=== PATIENT | male | born 1970 | race Caucasian/White ===

== ENCOUNTER 2019-02-11 05:28 | Observation (INO) | payer OTHER ==
[2019-01-31 17:32] VITALS: BMI 47.1
--- NOTE | 2019-02-03 11:59 | PREOPHP ---
DATE OF ADMISSION: 02/11/2019 The patient is to have surgery with Dr. Ray Lees on 02/11/2019. REASON FOR CONSULTATION: Consultation requested by Dr. Ray Lees for medical evaluation and clearance of a 48-year-old gentleman about to undergo surgery. Thank you, Dr. Lees, for allowing us to participate in care of this patient. HISTORY OF PRESENT ILLNESS: Mohit Monterroso is a 48-year-old gentleman, issues with his back, is curre ntly being admitted for a lumbar decompression diskectomy L5-S1. The patient's past medical and surgical history shows he has had no prior hospitalizations of any no sort, no surgeries, has not broken any bones and has been generally healthy. Currently, takes the fo llowing medications: 1. Amlodipine 10 mg a day. 2. Benazepril 40 mg a day. 3. He also takes nonsteroidal for this discomfort. ALLERGIES: HE IS NOT ALLERGIC TO ANY MEDICATIONS. SOCIAL HISTORY: The patient is single, has no children, does not smoke. Alcohol socially. Does not drink coffee, is employed and usually has no difficulty sleeping at night. FAMILY HISTORY: Both parents are living. Father 76, mother 73. Father is healthy. Mother has had breast cancer. She is a survivor and also has issues with her blood pressure. Five siblings are in good health. He knows of no diabetes or heart. There is cancer and hypertension but no strokes to h is knowledge in his family. REVIEW OF SYSTEMS: HEENT: Unremarkable. CARDIORESPIRATORY: Denies any chest pain or shortness of breath. GASTROINTESTINAL: No melena or hematemesis. GENITOURINARY: No urgency or frequency. MUSCULOSKELETAL: Positive for back pain. NEUROPSYCHIATRIC: Unremarkable. PHYSICAL EXAMINATION: VITAL SIGNS: The patient's blood pressure was 132/60, pulse was 88 and regular, respirations were 18 , temperature 98.4. Height 5 feet 10-1/2 inches, weight 328.3 pounds. GENERAL: The patient was noted to be a well-developed, well-nourished male, alert and cooperative, i n no apparent acute distress, oriented to time, place, and person. HEAD, EARS, EYES, NOSE AND THROAT: Head was atraumatic. Eyes: Pupils were equal, reacted to light and accommodation. Fundi were benign. Tympanic membranes were unremarkable. Nose was negative. Mo uth was unremarkable. Fair oral hygiene was present. NECK: Supple without any rigidity. Trachea was midline. Thyroid was unremarkable. Neck veins were flat. Carotid pulses were equal. No bruits were heard. BACK: Unremarkable. CHEST: Symmetrical. BREASTS AND AXILLARY: Did not reveal any masses. LUNGS: Clear. HEART: Examination of the heart, PMI is fifth intercostal space at the midclavicular line. A regula r sinus rhythm was noted. No significant murmurs, rubs, or gallops being elicited. ABDOMEN: Soft, good bowel sounds were noted. No significant organomegaly, masses, or tenderness. GENITALIA: Per PCP. RECTAL AND PROSTATIC: Per PCP. EXTREMITIES: Did not reveal any clubbing, edema or cyanosis. Peripheral pulses were physiologic. SKIN: Moist and warm without any eruptions. No gross lymphadenopathy was noted. NEUROLOGIC: Grossly intact. IMPRESSION 1. Lumbar disk disease, L5-S1. 2. Sleep apnea. 3. Hypertension. 4. Metabolic syndrome. 5. Stable health. DISCUSSION: Review of laboratory and other data revealed the following: Patient's chemistry panel r evealed normal electrolytes, glucose was 75. Patient had eaten. BUN, creatinine, calcium, uric acid , proteins were normal. Liver function tests revealed elevated SGPT and SGOT. The patient's CBC, se d rate, UA, PT and PTT were within normal limits. Patient's EKG was normal. Patient's chest x-ray d id not reveal any acute infiltrates, nor were there any acute cardiopulmonary changes being noted. DISCUSSION: Dr. Lees, I see no contraindications in the patient undergoing current proposed osvaldo edith under desired form of anesthesia. The patient has been advised to bring his CPAP machine with h im so he can use it during his stay at [facility] and one of our group will be more than hap py to follow him with you during his stay at [facility]. Thank you again, Dr. Lees, for allowing us to participate in the care of this patient. Dictated By: DARON SANCHEZ MD SS/NTS Conf#: [id number] DID#: [id number] CC: RAY LEES MD;*EndCC*
[2019-02-11] VITALS (22 sets, daily range): BP systolic 80–134; BP diastolic 45–82; PULSE 82–119; RESP 12–23; Ht 180.3 cm; Wt 145.8 kg
[~2019-02-11] VITALS: Ht 180.3 cm; Wt 145.8 kg
[~2019-02-11 05:28] MED LIST: AMLO-147 PO; BENA40TA56 PO
[2019-02-11] MEDS ORDERED: GELATIN SIZE 100 SPONGE ONE ×2 (06:39→10:21)
[2019-02-11] MEDS ORDERED: THROMBIN 5000 UNIT VIAL ONE (06:39)
[2019-02-11] MEDS ORDERED: POLYMYXIN/BACITRACIN 1L IRRIG ONE (06:40)
[2019-02-11] MEDS ORDERED: BUPIVACAINE 0.25%/EPI (SDV) 30 ML INJ ONE (06:40)
[2019-02-11] MEDS ORDERED: PROPOFOL 20 ML ONE (07:14)
[2019-02-11] MEDS ORDERED: SUCCINYLCHOLINE CHLORIDE 100 MG/5 ML SYG IV ONE (07:14)
[2019-02-11] MEDS ORDERED: PROPOFOL 100 ML ONE ×2 (07:14→10:34)
[2019-02-11] MEDS ORDERED: LIDOCAINE 100 MG SYRINGE ONE (07:14)
--- NOTE | 2019-02-11 07:14 | HPN ---
Date/Time of Note Date/Time of Note DATE: 02/11/19 TIME: 07:13 Interval H&P Admission Note Pt. seen H&P reviewed: No system changes RAY LEES MD February 11, 2019 07:14
--- NOTE | 2019-02-11 07:14 | PREAC ---
Date/Time of Note Date/Time of Note DATE: 02/11/19 TIME: 07:12 Anesthesia Eval and Record Evaluation Time Pre-Procedure Interview DATE: 02/11/19 TIME: 07:12 Age 48 Sex male NPO: 8 hrs Preoperative diagnosis Chronic Low Back Pain Planned procedure L5/S1 laminectomy Past Medical History Past Medical History: Includes Cardio: HTN Endo: Other (Morbid Obestity) Pulm: Sleep Apnea, Home CPAP Surgery & Anesthesia Issues No known issue Meds Anticoagulation: No Beta Jose within 24 hr: No Reason Beta Jose not given: Pt. not on B-Jose Reported Medications Amlodipine Besylate* (Amlodipine Besylate*) 10 Mg Tablet, 10 MG PO DAILY 01/31/19 Benazepril Hcl* (Benazepril Hcl*) 40 Mg Tablet, 40 MG PO DAILY 01/31/19 Meds reviewed: Yes Allergies Coded Allergies: No Known Allergy (Unverified , 02/11/19) Allergies Reviewed: Yes Labs/Studies Labs Reviewed: Reviewed by anesthesiologist test: N/A Pre-procedure Exam Last vitals Vital Signs Date Temp Pulse Resp B/P (MAP) Pulse Ox O2 O2 Flow FiO2 Time Delivery Rate 02/11/19 98.9 96 18 128/82 98 06:23 (97) Airway: Adequate mouth opening, Adequate thyromental dist Mallampati: Mallampati III Teeth: Normal Lung: Normal Heart: Normal ASA Physical Status ASA physical status: 3 Emergency: None Planned Anesthetic General/MAC: ETT Pre-operative Attestations Prior to commencing anesthesia and surgery, the patient was re-evaluated, there was verification of: *The patient's identity *The results of appropriate recent lab work and preoperative vital signs *The above evaluation not changing prior to induction *Anesthetic plan, risk benefits, alternative and complications discussed with patient/family; questions answered; patient/family understands, accepts and wishes to proceed. ELSIE HEATON MD February 11, 2019 07:14
[2019-02-11] MEDS ORDERED: MIDAZOLAM 1 MG/ML 2 ML INJ ONE (07:15)
[2019-02-11] MEDS ORDERED: VASOPRESSIN 20 UNITS INJ ONE (07:39)
[2019-02-11] MEDS ORDERED: CEFAZOLIN 1 GM INJ ONE (08:07)
[2019-02-11] MEDS ORDERED: ONDANSETRON 4 MG INJ ONE (08:07)
[2019-02-11] MEDS ORDERED: DEXAMETHASONE 4 MG/ML 5 ML INJ ONE (08:07)
[2019-02-11] MEDS ORDERED: HEMOSTATIC MATRIX/ THROMBIN 1 EA SYG ZFS ONE (08:30)
[2019-02-11] MEDS ORDERED: PHENYLephrine (100 MCG/ML) 10ML SYG ONE (08:45)
[2019-02-11] MEDS ORDERED: EPHEDrine 25 MG/5 ML SYG ONE (08:45)
[2019-02-11] MEDS ORDERED: PHENYLephrine 10 MG INJ ONE (08:46)
[2019-02-11] MEDS ORDERED: LABETALOL HCL 20MG INJ IV PRN (09:00)
[2019-02-11] MEDS ORDERED: HYDROmorphONE 1 MG/5 ML IV SYRINGE IV PRN ×3 (09:00)
[2019-02-11] MEDS ORDERED: hydrALAzine 20 MG INJ IV PRN (09:00)
[2019-02-11] MEDS ORDERED: DIPHENHYDRAMINE 50 MG INJ IV PRN (09:00)
[2019-02-11] MEDS ORDERED: ONDANSETRON 4 MG INJ IV PRN ×2 (09:00→11:30)
[2019-02-11] MEDS ORDERED: MEPERIDINE 25 MG INJ IV PRN (09:00)
[2019-02-11] MEDS ORDERED: KETOROLAC 15 MG INJ IV PRN (09:00)
[2019-02-11] MEDS ORDERED: ROCURONIUM 50 MG INJ ONE (10:34)
[2019-02-11] MEDS ORDERED: SUGAMMADEX SODIUM 200 MG/2 ML VIAL IV ONE (10:38)
--- NOTE | 2019-02-11 11:27 | OPR ---
Date/Time of Note Date/Time of Note DATE: 02/11/19 TIME: 11:13 Operative Report Free Text/Dictation DATE OF OPERATION: 02/11/2019 PREOPERATIVE DIAGNOSES: 1. L5-S1 spinal stenosis w/ radiculopathy and neurogenic claudication 2. L5-S1 central disc herniation with S1 radiculopathy 3. Morbid obesity BMI: 44.8 kg/m2 POSTOPERATIVE DIAGNOSES: 1. L5-S1 spinal stenosis w/ radiculopathy and neurogenic claudication 2. L5-S1 central chronic calcified disc herniation with (Left> Right sided) S1 radiculopathy 3. Morbid obesity BMI: 44.8 kg/m2 OPERATION PERFORMED: 1. Bilateral L4-L5 laminectomy, medial facetectomy, and foraminotomy 2. L5-S1 microdiscectomy 3. Interprettation of Neuromonitoring SURGEON: Ray Lees MD MEAT GRADER: Emerson Aranda MD ANESTHESIA: General endotracheal ESTIMATED BLOOD LOSS: 200 mL SURGICAL INDICATION: The patient is a 48 year-old male who presents with a several year history of worsening left greater than right lower extremity pain. He was found to have a large central disc herniation at L5-S1 with facet and ligamentum hypertrophy resulting in severe spinal stenosis. The patient had failed conservative treatment. Risks, benefits, and alternatives to a L5-S1 bilateral decompression with microdiscectomy were explained to the patient and they wished to proceed. Risks explained included but were not exclusive of bleeding, infection, cauda equina syndrome, nerve injury, dural tear, iatrogenic instability requiring fusion, recurrent disc herniation, fracture, vascular injury, bowel injury, stroke, heart attack and pulmonary embolism. DESCRIPTION OF TECHNIQUE: The patient was identified in the preoperative area and taken to the operating room. Rapid induction of general endotracheal anesthesia was performed. The patient was given 3 g of cefazolin for prophylaxis. The patient was then placed in the prone position on the Rosalio frame on a Mitch flat top table with all prominences well padded. The back was prepped and draped in the usual sterile manner. Using a spinal needle and intraoperative fluoroscopy, the appropriate level was clearly identified (L5- S1). The skin was injected using 0.25% Marcaine with epinephrine. Longitudinal midline incision was then created using a 10 blade. Further dissection through soft tissue was performed using electrocautery down to the bilateral L5 spinous processes.Dissection was taken down the lamina and over the facet joint capsule. A self-retaining retractor was applied. Again, intraoperative fluoroscopy confirmed the level.The microscope was brought into use for microdissection. A rongeur was used to remove a portion of the L5 spinous process and interspinous ligament. A high-speed salinas and a series of Kerrison rongeurs were used to resec t a the L5 lamina, and a portion of the medial facet and the bone overlying the foramen. Ligamentum flavum was also resected using the Kerrison rongeurs. Care was taken to protect the thecal sac throughout the decompressive procedure. The dura and traversing nerve root were both directly visualized. These were retracted gently in a medial direction. The disk was found to be completely calcified. A bone tamp and a series of curettes were used to remove a portion of the calcified disk. Several loose fragments of disk were removed. These were removed back to a stable portion of the disk. The disk space was further pressurized using a using normal saline through a syringe to ensure that no loose fragments remained behind. Palpation with a ball-tip probe did not reveal any further stenosis. The exiting L5 and traversing S1 nerve roots was noted to be significantly decompressed. Meticulous attention was then paid towards hemostasis using FloSeal as well as Gelfoam and thrombin. Care was taken to remove all FloSeal and Gelfoam prior to wound closure. The fascia was then closed using 0 Vicryl in an interrupted fashion over a medium hemovac. Subcutaneous tissue was closed using 2-0 Vicryl in an interrupted fashion. The skin was closed using 3-0 nylon in a horizontal mattress fashion. The wound was dressed using xeroform and a 4x4 sterile gauze. The patient was returned to the supine position. He was extubated immediately postoperatively and taken to the recovery room in stable condition. Please note that this procedure took an addition 1 hour for dissection and decompression given the patients large body habitus (BMI of 44.8 kg/m2) and adherent calcified disk. Procedure Date: February 11, 2019 Preoperative Diagnosis 1. L5-S1 spinal stenosis w/ radiculopathy and neurogenic claudication 2. L5-S1 central disc herniation with S1 radiculopathy 3. Morbid obesity BMI: 44.8 kg/m2 Postoperative Diagnosis 1. L5-S1 spinal stenosis w/ radiculopathy and neurogenic claudication 2. L5-S1 central chronic calcified disc herniation with (Left> Right sided) S1 radiculopathy 3. Morbid obesity BMI: 44.8 kg/m2 Operation/Procedure Performed 1. Bilateral L4-L5 laminectomy, medial facetectomy, and foraminotomy 2. L5-S1 microdiscectomy 3. Interprettation of Neuromonitoring Surgeon see signature line Teletypist Emerson Aranda MD Anesthesia Type: general Estimated Blood Loss: 150 - 200 ml's Transfusion none Specimen L5-S1 disk Grafts/Implants none Complications none Pt Condition Post Procedure: stable Disposition: PACU Procedure Description DESCRIPTION OF TECHNIQUE: The patient was identified in the preoperative area an d taken to the operating room. Rapid induction of general endotracheal anesthesia was performed. The patient was given 3 g of cefazolin for prophylaxis. The patient was then placed in the prone position on the Rosalio frame on a Mitch flat top table with all prominences well padded. The back was prepped and draped in the usual sterile manner. Using a spinal needle and intraoperative fluoroscopy, the appropriate level was clearly identified (L5- S1). The skin was injected using 0.25% Marcaine with epinephrine. Longitudinal midline incision was then created using a 10 blade. Further dissection through soft tissue was performed using electrocautery down to the bilateral L5 spinous processes.Dissection was taken down the lamina and over the facet joint capsule. A self-retaining retractor was applied. Again, intraoperative fluoroscopy confirmed the level.The microscope was brought into use for microdissection. A rongeur was used to remove a portion of the L5 spinous process and interspinous ligament. A high-speed salinas and a series of Kerrison rongeurs were used to resect a the L5 lamina, and a portion of the medial facet and the bone overlying the foramen. Ligamentum flavum was also resected using the Kerrison rongeurs. Care was taken to protect the thecal sac throughout the decompressive procedure. The dura and traversing nerve root were both directly visualized. These were retracted gently in a medial direction. The disk was found to be completely calcified. A bone tamp and a series of curettes were used to remove a portion of the calcified disk. Several loose fragments of disk were removed. These were removed back to a stable portion of the disk. The disk space was further pressurized using a using normal saline through a syringe to ensure that no loose fragments remained behind. Palpation with a ball-tip probe did not reveal any further stenosis. The exiting L5 and traversing S1 nerve roots was noted to be significantly decompressed. Meticulous attention was then paid towards hemostasis using FloSeal as well as Gelfoam and thrombin. Care was taken to remove all FloSeal and Gelfoam prior to wound closure. The fascia was then closed using 0 Vicryl in an interrupted fashion over a medium hemovac. Subcutaneous tissue was closed using 2-0 Vicryl in an interrupted fashion. The skin was closed using 3-0 nylon in a horizontal mattress fashion. The wound was dressed using xeroform and a 4x4 sterile gauze. The patient was returned to the supine position. He was extubated immediately postoperatively and taken to the recovery room in stable condition. Please note that this procedure took an addition 1 hour for dissection and decompression given the patients large body habitus (BMI of 44.8 kg/m2) and adherent calcified disk. RAY LEES MD February 11, 2019 11:26
[2019-02-11] MEDS ORDERED: HYDROCODONE/APAP (5/325) TAB PO PRN ×2 (11:30)
[2019-02-11] MEDS ORDERED: NALOXONE (0.4 MG/ML) INJ IV PRN (11:30)
[2019-02-11] MEDS ORDERED: NACL 0.9% 3 ML SYG IV SCH (11:30)
[2019-02-11] MEDS ORDERED: ACETAMINOPHEN 325 MG TAB PO PRN (11:30)
[2019-02-11] MEDS ORDERED: PROCHLORPERAZINE 10 MG TAB PO PRN (11:30)
[2019-02-11] MEDS ORDERED: AL HYDROX/MG HYDROX/SIMETH 30 ML CUP PO PRN (11:30)
[2019-02-11] MEDS ORDERED: ALBUMIN HUMAN 5% 250 ML IV ONE (12:00)
[2019-02-11] MEDS ORDERED: EPHEDrine 25 MG/5 ML SYG IV PRN (12:00)
[2019-02-11] MEDS: CEFAZOLIN 1 GM/50 ML (PMX) 50 ML IVPB SCH ×2 (13:09→18:27)
[2019-02-11] MEDS: HYDROmorphONE 0.5 MG/0.5 ML SYG IV PRN ×2 (13:09→20:15)
--- NOTE | 2019-02-11 13:14 | PAC ---
Date/Time of Note Date/Time of Note DATE: 02/11/19 TIME: 13:14 Post-Anesthesia Notes Post-Anesthesia Note Last documented vital signs Vital Signs Date Temp Pulse Resp B/P (MAP) Pulse Ox O2 O2 Flow FiO2 Time Delivery Rate 02/11/19 84 18 100/58 97 Nasal 2.0 12:29 (72) Cannula 02/11/19 98.2 12:25 Activity: WNL Respiratory function: WNL Cardiovascular function: WNL Mental status: Baseline Pain reasonably controlled: Yes Hydration appropriate: Yes Nausea/Vomiting absent: Yes ELSIE HEATON MD February 11, 2019 13:14
--- NOTE | 2019-02-11 16:59 | CONS ---
Assessment/Plan Assessment/Plan Problems: (1) Status post lumbar spine surgery for decompression of spinal cord Onset Date: ~ 02/11/2019 Status: Acute Comment: [facility] and doing well. Continue careful rehabilitation protocol and watch for complications. Please note he is using sequential compression device stockings for DVT prophylaxis (2) S/P lumbar discectomy Onset Date: ~ 02/11/2019 Status: Acute Comment: As above. (3) Essential hypertension Status: Chronic Comment: Continue with outpatient regimen, orders written (4) Morbid obesity with BMI of 40.0-44.9, adult Status: Chronic Comment: Calorie restriction diet (5) Obstructive sleep apnea Status: Chronic Comment: Continue with his home CPAP device which she is brought to the hospital (6) Metabolic syndrome Status: Chronic Comment: Be checking fingerstick sugars to verify where we are with this and treat pharmaceutically as indicated (7) Abnormal liver function tests Status: Chronic Comment: Likely related to his obesity. CC: RAY LEES MD; DARON GOLD MD ; Consultation Date/Type/Reason Admit Date/Time February 11, 2019 at 11:07 Date of Consultation: February 11, 2019 Type of Consult Internal medicine Reason for Consultation Postoperative assistance in management after lumbar spine surgery. Please note the patient was seen in preoperative consultation in our office by Dr. Gold Requesting Provider: RAY LEES MD Date/Time of Note DATE: 02/11/19 TIME: 16:54 Hx of Present Illness Charming 48-year-old gentleman admitted after spinal surgery. At this time he reports he is doing well. Please see the dictation for the preop consultation done by Dr. Gold Constitutional: no complaints Eyes: no complaints ENT: no complaints Respiratory: no complaints Cardiovascular: no complaints Gastrointestinal: no complaints Genitourinary: no complaints Musculoskeletal: no complaints Skin: no complaints Neurologic: no complaints Endocrine: no complaints Past Medical History Medical History: hypertension, other (Lumbar disc disease with sciatica; metabolic syndrome) Home Meds Reported Medications Amlodipine Besylate* (Amlodipine Besylate*) 10 Mg Tablet, 10 MG PO DAILY 01/31/19 Benazepril Hcl* (Benazepril Hcl*) 40 Mg Tablet, 40 MG PO DAILY 01/31/19 Medications Current Medications Acetaminophen/ Hydrocodone Bitart ([place] (5/325)) 1 tab Q4H PRN PO .PAIN 1-5; Start 02/11/19 at 11:30 Acetaminophen/ Hydrocodone Bitart ([place] (5/325)) 2 tab Q4H PRN PO .PAIN 6-10; Start 02/11/19 at 11:30 Cefazolin Sodium 50 ml @ 100 mls/hr Q6 IVPB Last administered on 02/11/19at 13:09; Admin Dose 100 MLS/HR; Start 02/11/19 at 12:00; Stop 02/12/19 at 06:29 Prochlorperazine (Compazine) 10 mg Q4H PRN PO NAUSEA/VOMITING; Start 02/11/19 at 11:30 Ondansetron HCl (Zofran Inj) 4 mg Q6H PRN IV NAUSEA/VOMITING; Start 02/11/19 at 11:30 Al Hydrox/Mg Hydrox/Simethicone (Mag-Al Plus) 15 ml Q4H PRN PO .CONSTIPATION; Start 02/11/19 at 11:30 Docusate Sodium (Colace) 100 mg BID PO ; Start 02/12/19 at 09:00 Acetaminophen (Tylenol Tab) 650 mg Q4H PRN PO TEMP GREATER THAN 101F OR BLACK; Start 02/11/19 at 11:30 IV Flush (NS 3 ml) 3 ml PER PROTOCOL IV ; Start 02/11/19 at 11:30 Naloxone HCl (Narcan) 0.2 mg Q2M PRN IV RR 8 BREATHS/MIN OR LESS; Start 02/11/19 at 11:30 Hydromorphone HCl (Dilaudid) 0.5 mg Q3H PRN IV SEVERE PAIN LEVEL 7-10 Last administered on 02/11/19at 13:09; Admin Dose 0.5 MG; Start 02/11/19 at 11:30 Allergies: Coded Allergies: No Known Allergy (Unverified , 02/11/19) Past Surgical History Past Surgical Hx: noncontributory Family History Significant Family History: diabetes, hypertension Social History Alcohol Use: none Smoking Status: Never smoker Drug Use: none Exam/Review of Systems Exam Vitals Vital Signs Date Temp Pulse Resp B/P (MAP) Pulse Ox O2 O2 Flow FiO2 Time Delivery Rate 02/11/19 98.1 104 16 122/68 98 Nasal 2.0 15:30 (86) Cannula Constitutional: alert, oriented Head: normocephalic, atraumatic Eyes: nl conjunctiva, EOMI, nl lids, nl sclera Neck: supple, non-tender Respiratory: clear to auscultation, normal air movement Cardiovascular: regular rate and rhythm, nl pulses Gastrointestinal: soft, nl liver, spleen, non-tender Extremities: normal pulses Medications Medication Current Medications Acetaminophen/ Hydrocodone Bitart ([place] (5/325)) 1 tab Q4H PRN PO .PAIN 1-5; Start 02/11/19 at 11:30 Acetaminophen/ Hydrocodone Bitart ([place] (5/325)) 2 tab Q4H PRN PO .PAIN 6-10; Start 02/11/19 at 11:30 Cefazolin Sodium 50 ml @ 100 mls/hr Q6 IVPB Last administered on 02/11/19at 13:09; Admin Dose 100 MLS/HR; Start 02/11/19 at 12:00; Stop 02/12/19 at 06:29 Prochlorperazine (Compazine) 10 mg Q4H PRN PO NAUSEA/VOMITING; Start 02/11/19 at 11:30 Ondansetron HCl (Zofran Inj) 4 mg Q6H PRN IV NAUSEA/VOMITING; Start 02/11/19 at 11:30 Al Hydrox/Mg Hydrox/Simethicone (Mag-Al Plus) 15 ml Q4H PRN PO .CONSTIPATION; Start 02/11/19 at 11:30 Docusate Sodium (Colace) 100 mg BID PO ; Start 02/12/19 at 09:00 Acetaminophen (Tylenol Tab) 650 mg Q4H PRN PO TEMP GREATER THAN 101F OR BLACK; Start 02/11/19 at 11:30 IV Flush (NS 3 ml) 3 ml PER PROTOCOL IV ; Start 02/11/19 at 11:30 Naloxone HCl (Narcan) 0.2 mg Q2M PRN IV RR 8 BREATHS/MIN OR LESS; Start at 11:30 Hydromorphone HCl (Dilaudid) 0.5 mg Q3H PRN IV SEVERE PAIN LEVEL 7-10 Last administered on 02/11/19at 13:09; Admin Dose 0.5 MG; Start 02/11/19 at 11:30 YESENIA BE MD February 11, 2019 16:59
[2019-02-11] MEDS: ACCU-CHEK XX SCH ×2 (17:42→21:30)
[2019-02-12 00:35] VITALS: BP 115/75; PULSE 104; RESP 18
[2019-02-12] MEDS: CEFAZOLIN 1 GM/50 ML (PMX) 50 ML IVPB SCH ×2 (00:42→05:36)
[2019-02-12] MEDS: HYDROmorphONE 0.5 MG/0.5 ML SYG IV PRN ×2 (07:23→12:33)
[2019-02-12 07:49] VITALS: BP 109/76; PULSE 90; RESP 18
[2019-02-12] MEDS: ACCU-CHEK XX SCH ×3 (08:20→12:45)
[2019-02-12] MEDS ORDERED: AMLODIPINE 10 MG TAB PO SCH (09:00)
[2019-02-12] MEDS ORDERED: DOCUSATE SODIUM 100 MG CAP PO SCH (09:00)
[2019-02-12] MEDS ORDERED: BENAZEPRIL 40 MG TAB PO SCH (09:00)
--- NOTE | 2019-02-12 12:37 | PDOCDIS ---
Discharge Instructions CONDITION [id number] Patient Condition: [id number] Good HOME CARE INSTRUCTIONS: [id number] Diet Instructions: [id number] Regular ACTIVITY: [id number] Activity Restrictions: [id number] No Sexual Activity Avoid Heavy Housework [id number] Bathing Restrictions: [id number] Shower FOLLOW UP/APPOINTMENTS Follow-up Plan Follow-up with Dr. Lees in 2 weeks RAY LEES MD February 12, 2019 12:37
--- NOTE | 2019-02-12 13:54 | CONS ---
Assessment/Plan Assessment/Plan Problems: (1) S/P lumbar discectomy Onset Date: ~ 02/11/2019 Status: Acute Comment: Doing well postop and stable for discharge (2) Status post lumbar spine surgery for decompression of spinal cord Onset Date: ~ 02/11/2019 Status: Acute Comment: Doing well postop and stable for discharge (3) Essential hypertension Status: Chronic Comment: Adequate control (4) Obstructive sleep apnea Status: Chronic Comment: Adequate control (5) Morbid obesity with BMI of 40.0-44.9, adult Status: Chronic Comment: Noted. Please note we checked his Accu-Cheks before and after meals this gentleman does NOT have type 2 diabetes Consultation Date/Type/Reason Admit Date/Time February 11, 2019 at 11:07 Initial Consult Date 02/11/19 Type of Consult Internal medicine Reason for Consultation Patient reports he is doing well and is actually looking forward to being discharged home Requesting Provider: RAY LEES MD Date/Time of Note DATE: 02/12/19 TIME: 13:51 24 HR Interval Summary Constitutional: no complaints Detailed Summary Respiratory: no complaints Cardiovascular: no complaints Gastrointestinal: no complaints Exam/Review of Systems Exam Vitals Vital Signs Date Temp Pulse Resp B/P (MAP) Pulse Ox O2 O2 Flow FiO2 Time Delivery Rate 02/12/19 Nasal 2.0 08:45 Cannula 02/12/19 98.5 90 18 109/76 96 07:49 (87) Intake and Output 02/11/19 02/11/19 02/12/19 1515:00 23:00 07:00 IntakeIntake Total 1250 ml 530 ml 400 ml OutputOutput Total 100 ml 60 ml 80 ml BalanceBalance 1150 ml 470 ml 320 ml Constitutional: alert, oriented Respiratory: clear to auscultation, normal air movement Cardiovascular: regular rate and rhythm, nl pulses Gastrointestinal: soft, nl liver, spleen, non-tender Results Result Diagram: 02/12/19 0422 02/12/19 0422 Results 24hrs Laboratory Tests Test 02/11/19 17:34 02/11/19 21:22 02/12/19 04:22 02/12/19 08:20 Bedside Glucose 168 131 Hemoglobin 15.1 Hematocrit 46.1 Sodium Level 142 Potassium Level 4.2 Chloride Level 104 Carbon Dioxide 27 Level Anion Gap 11 Blood Urea 15 Nitrogen Creatinine 0.98 Est Glomerular > 60 Filtrat Rate mL/min Glucose Level 120 Calcium Level 9.1 Hepatitis A POSITIVE H Antibody Total Hepatitis B NEGATIVE Surface Antigen Hepatitis B NEGATIVE Surface Antibody Hepatitis C NEGATIVE Antibody Lab Scanned Report REFERENCE LAB Test 02/12/19 08:26 02/12/19 10:51 02/12/19 12:44 Bedside Glucose 110 89 93 Medications Medication Current Medications Acetaminophen/ Hydrocodone Bitart ([place] (5/325)) 1 tab Q4H PRN PO .PAIN 1-5; Start 02/11/19 at 11:30 Acetaminophen/ Hydrocodone Bitart ([place] (5/325)) 2 tab Q4H PRN PO .PAIN 6-10; Start 02/11/19 at 11:30 Prochlorperazine (Compazine) 10 mg Q4H PRN PO NAUSEA/VOMITING; Start 02/11/19 at 11:30 Ondansetron HCl (Zofran Inj) 4 mg Q6H PRN IV NAUSEA/VOMITING; Start 02/11/19 at 11:30 Al Hydrox/Mg Hydrox/Simethicone (Mag-Al Plus) 15 ml Q4H PRN PO .CONSTIPATION; Start 02/11/19 at 11:30 Docusate Sodium (Colace) 100 mg BID PO Last administered on 02/12/19at 08:31; Admin Dose 100 MG; Start 02/12/19 at 09:00 Acetaminophen (Tylenol Tab) 650 mg Q4H PRN PO TEMP GREATER THAN 101F OR BLACK; Start 02/11/19 at 11:30 IV Flush (NS 3 ml) 3 ml PER PROTOCOL IV ; Start 02/11/19 at 11:30 Naloxone HCl (Narcan) 0.2 mg Q2M PRN IV RR 8 BREATHS/MIN OR LESS; Start 02/11/19 at 11:30 Hydromorphone HCl (Dilaudid) 0.5 mg Q3H PRN IV SEVERE PAIN LEVEL 7-10 Last admi nistered on 02/12/19at 12:33; Admin Dose 0.5 MG; Start 02/11/19 at 11:30 Amlodipine Besylate (Norvasc) 10 mg DAILY PO Last administered on 02/12/19at 08:30; Admin Dose 10 MG; Start 02/12/19 at 09:00 Benazepril HCl (Lotensin) 40 mg DAILY PO Last administered on 02/12/19at 08:30; Admin Dose 40 MG; Start 02/12/19 at 09:00 Diagnostic Test (Pha) (Accu-Chek) 1 ea AC MEALS XX Last administered on 9at 12:45; Admin Dose 1 EA; Start 02/11/19 at 17:25 Diagnostic Test (Pha) (Accu-Chek) 1 ea 2 HOURS AFTER MEALS XX Last administered on 02/12/19at 10:50; Admin Dose 1 EA; Start 02/11/19 at 19:55 YESENIA BE MD February 12, 2019 13:54
== END 2019-02-12 14:36 | disposition home or self-care (01) ==
LOC: SDS 05:28 → REC 11:07 → MS1 12:41
PROVIDERS: ADMIT Orthopaedic Surgery; ATTEND Orthopaedic Surgery
DX: M48.07 Spinal stenosis, lumbosacral region (principal); M51.17 Intervertebral disc disorders with radiculopathy, lumbosacral region; E66.01 Morbid (severe) obesity due to excess calories; Z68.41 Body mass index [BMI] 40.0-44.9, adult; I10 Essential (primary) hypertension; G47.33 Obstructive sleep apnea (adult) (pediatric)
CPT/HCPCS: 63030; 72100; 80048; 82962; 85014; 85018; 86706; 86708; 86803; 87340; 88304; 97110; 97116; 97162; 97530; 99217; G0378; J0690; J1100; J1170; J1200; J2001; J2250; J2370; J2405; J3010; P9045